=== PATIENT | male | born 1955 | race Caucasian/White ===

== ENCOUNTER 2024-07-25 06:05 | Inpatient (IN) | payer MEDICARE ==
[~2024-07-25] VITALS: Ht 160 cm; Wt 67.1 kg
[2024-07-25] MEDS ORDERED: LIDOCAINE 2%-EPI 1:100,000 30 ML VIAL ONE (06:54)
[2024-07-25] MEDS ORDERED: OXYMETAZOLINE HCL NASAL SPRAY 30 ML BOTTLE NS ONE (06:55)
[2024-07-25] MEDS ORDERED: VANCOMYCIN 1 GM VIAL ONE (06:55)
[2024-07-25] MEDS ORDERED: dexaMETHasone SOD PHOSPHATE 1 ML ONE (06:55)
[2024-07-25] MEDS ORDERED: LIDOCAINE 2% JEL UROJET 10 ML MM ONE (07:23)
[2024-07-25] MEDS ORDERED: MIDAZOLAM HCL 2 MG/2ML VIAL ONE (07:24)
[2024-07-25] MEDS ORDERED: FAMOTIDINE/PF INJ 20 MG/2 ML VIAL IV ONE (07:24)
[2024-07-25] MEDS ORDERED: FENTANYL PF 100MCG/2ML AMPUL ONE (07:24)
[2024-07-25] MEDS ORDERED: ROCURONIUM BROMIDE 50 MG/5 ML ONE (07:24)
[2024-07-25] MEDS ORDERED: LABETALOL 20 MG/4 ML VIAL ONE (08:26)
[2024-07-25] MEDS ORDERED: ONDANSETRON HCL/PF 4 MG/2 ML VIAL IVP PRN (11:30)
[2024-07-25] MEDS: ACETAMINOPHEN 325 MG TABLET PO PRN (11:30)
[2024-07-25] MEDS ORDERED: HYDROMORPHONE 1 MG/1 ML DISP.SYRIN IV PRN (11:30)
[2024-07-25] MEDS ORDERED: DOCU250C14 PO (11:47)
[2024-07-25] MEDS ORDERED: GEMTESA PO (11:47)
[2024-07-25] MEDS ORDERED: LIDO1ADH78 TD (11:47)
[2024-07-25] MEDS ORDERED: IBUP-1953 PO (11:47)
[2024-07-25] MEDS ORDERED: DICL25PO15 TP (11:47)
[2024-07-25] MEDS ORDERED: BACL10TA PO (11:47)
[2024-07-25] MEDS ORDERED: ERGO500093 PO (11:47)
[2024-07-25] MEDS ORDERED: SIMV-46 PO (11:47)
[2024-07-25] MEDS ORDERED: MAGN400T26 PO (11:47)
[2024-07-25] MEDS ORDERED: GABA300C PO (11:47)
[2024-07-25] MEDS ORDERED: TRIA60LO8 TP (11:47)
[2024-07-25] MEDS ORDERED: ASPI-1169 PO (11:47)
[2024-07-25 16:10] VITALS: BP 115/72; TEMP 97.9; O2SAT 94
[2024-07-25] MEDS: IV NS 0.9% 1,000 ML IV PRN (16:36)
[2024-07-25 20:00] VITALS: BP_SYST 134; BP_SYST 138; BP_DIAS 58; BP_DIAS 75; TEMP 97.5; O2SAT 94; O2SAT 97
[2024-07-25] MEDS: VANCOMYCIN 1 GM in IV D5W 250ml IV SCH (20:11)
[2024-07-26] MEDS ORDERED: BACLOFEN (10 MG) 10 MG TABLET PO SCH (17:00)
[2024-07-26] MEDS ORDERED: DOCUSATE SODIUM 250 MG CAPSULE PO SCH (17:00)
[2024-07-26] MEDS ORDERED: SIMVASTATIN 20 MG TABLET PO SCH (22:00)
[2024-07-27] MEDS ORDERED: ASPIRIN 81 MG TAB.CHEW PO SCH (09:00)
[2024-07-27] MEDS ORDERED: GABAPENTIN 300 MG CAPSULE PO SCH (09:00)
== END 2024-07-26 11:00 | disposition home or self-care (01) | DRG 497 ==
LOC: DS 06:05 → MED 10:39
PROVIDERS: ADMIT Internal Medicine; ATTEND Internal Medicine
PROC: 0N5V0ZZ Destruction of Left Mandible, Open Approach (ICD-10-PCS; principal; 2024-07-25)
PROC: 0NSR04Z Reposition Maxilla with Internal Fixation Device, Open Approach (ICD-10-PCS; 2024-07-25)
PROC: 0N5T0ZZ Destruction of Right Mandible, Open Approach (ICD-10-PCS; 2024-07-25)
PROC: 0N5R0ZZ Destruction of Maxilla, Open Approach (ICD-10-PCS; 2024-07-25)
PROC: 0CBH0ZZ Excision of Left Submaxillary Gland, Open Approach (ICD-10-PCS; 2024-07-25)
PROC: 0CBG0ZZ Excision of Right Submaxillary Gland, Open Approach (ICD-10-PCS; 2024-07-25)
PROC: 0NSV04Z Reposition Left Mandible with Internal Fixation Device, Open Approach (ICD-10-PCS; 2024-07-25)
PROC: 0NST04Z Reposition Right Mandible with Internal Fixation Device, Open Approach (ICD-10-PCS; 2024-07-25)
PROC: 0NUR07Z Supplement Maxilla with Autologous Tissue Substitute, Open Approach (ICD-10-PCS; 2024-07-25)
PROC: 0NUV07Z Supplement Left Mandible with Autologous Tissue Substitute, Open Approach (ICD-10-PCS; 2024-07-25)
PROC: 0NUT07Z Supplement Right Mandible with Autologous Tissue Substitute, Open Approach (ICD-10-PCS; 2024-07-25)
DX: S02.40DK Maxillary fracture, left side, subsequent encounter for fracture with nonunion (principal); S02.69XK Fracture of mandible of other specified site, subsequent encounter for fracture with nonunion; M27.2 Inflammatory conditions of jaws; D16.4 Benign neoplasm of bones of skull and face; E78.5 Hyperlipidemia, unspecified; G62.9 Polyneuropathy, unspecified; X58.XXXD Exposure to other specified factors, subsequent encounter; D49.0 Neoplasm of unspecified behavior of digestive system; M60.88 Other myositis, other site
CPT/HCPCS: A4223; A4338; C1713; G0378; J1100; J2250; J2704; J3010; J3370; J3490; J7030; J7060

== ENCOUNTER 2024-11-28 07:25 | Inpatient (IN) | payer MEDICARE, OTHER ==
[~2024-11-28] VITALS: Ht 160 cm; Wt 69.9 kg
[~2024-11-28 07:25] MED LIST: ASPI-1169 PO; BACL10TA PO; DICL25PO15 TP; DOCU250C14 PO; ERGO500093 PO; GABA300C PO; GEMTESA PO; IBUP-1953 PO; LIDO1ADH78 TD; MAGN400T26 PO; SIMV-46 PO; TRIA60LO8 TP
[2024-11-28] MEDS ORDERED: OXYMETAZOLINE HCL NASAL SPRAY 30 ML BOTTLE NS ONE (08:35)
[2024-11-28] MEDS ORDERED: LIDOCAINE 2%-EPI 1:100,000 30 ML VIAL ONE (08:35)
[2024-11-28] MEDS ORDERED: VANCOMYCIN 1 GM VIAL ONE (08:35)
[2024-11-28] MEDS ORDERED: dexaMETHasone SOD PHOSPHATE 2 ML ONE (08:35)
[2024-11-28] MEDS ORDERED: FENTANYL PF 100MCG/2ML AMPUL ONE (08:38)
[2024-11-28] MEDS ORDERED: MIDAZOLAM HCL 2 MG/2ML VIAL ONE (08:38)
[2024-11-28] MEDS ORDERED: LIDOCAINE 2% JEL UROJET 10 ML MM ONE (08:38)
[2024-11-28] MEDS ORDERED: ROCURONIUM BROMIDE 50 MG/5 ML ONE (08:39)
[2024-11-28] MEDS ORDERED: FAMOTIDINE/PF INJ 20 MG/2 ML VIAL IV ONE (08:39)
[2024-11-28] MEDS ORDERED: LABETALOL 20 MG/4 ML VIAL ONE (09:52)
[2024-11-28] MEDS ORDERED: KETOROLAC TROMETHAMINE INJ 30 MG/ML VIAL IM/IV PRN (10:30)
[2024-11-28] MEDS: BLOOD SUGAR DIAGNOSTIC 1 EACH STRIP VI ONE (12:25)
[2024-11-28] MEDS ORDERED: ACETAMINOPHEN 325 MG TABLET PO PRN ×2 (13:30→14:30)
[2024-11-28] MEDS ORDERED: HYDROMORPHONE 1 MG/1 ML DISP.SYRIN IV PRN (13:30)
[2024-11-28] MEDS ORDERED: ONDANSETRON HCL/PF 4 MG/2 ML VIAL IVP PRN ×2 (13:30→14:30)
[2024-11-28] MEDS: IV NS 0.9% 1,000 ML IV PRN (13:39)
[2024-11-28] MEDS ORDERED: HYDROCODONE/APAP 10/325MG TABLET PO PRN (14:30)
[2024-11-28] MEDS ORDERED: MAGNESIUM HYDROXIDE 30 ML UDC PO PRN (14:30)
[2024-11-28] MEDS ORDERED: MAG HYDROX/AL HYDROX/SIMETH 30 ML UDC PO PRN (14:30)
[2024-11-28] MEDS ORDERED: Z GUARD REMEDY 4 OZ OINT TP PRN (14:30)
[2024-11-28] MEDS ORDERED: LIDOCAINE 5% (PATCH) 1 EA PATCH TP PRN (15:00)
[2024-11-28 15:31] VITALS: BP 116/72; TEMP 97.7; O2SAT 99
[2024-11-28 16:00] VITALS: BP 126/75; TEMP 97.9; O2SAT 97
[2024-11-28] MEDS: MAGNESIUM OXIDE 400 MG TABLET PO SCH (17:13)
[2024-11-28] MEDS: DOCUSATE SODIUM 250 MG CAPSULE PO SCH (17:14)
[2024-11-28] MEDS: BACLOFEN (10 MG) 10 MG TABLET PO SCH (17:14)
[2024-11-28 20:00] VITALS: BP 115/64; TEMP 98.1; O2SAT 94
[2024-11-28] MEDS: SIMVASTATIN 20 MG TABLET PO SCH (21:11)
[2024-11-28] MEDS: VANCOMYCIN 1 GM in IV D5W 250ml IV SCH (21:11)
[2024-11-29 05:43] LABS: BASOPHILS % (AUTO) 0.1 % (0.0-2.0); HEMATOCRIT 39 % (39-51); HEMOGLOBIN 12.9 g/dL (13.5-17.5); LYMPHOCYTES # (AUTO) 0.9 K/uL (0.8-4.8); LYMPHOCYTES % (AUTO) 7.1 % (20.0-44.0); MEAN CORPUSCULAR HEMOGLOBIN 30 PG (26.0-33.0); MEAN CORPUSCULAR HGB CONC 33 g/dl (31.0-36.0); MEAN CORPUSCULAR VOLUME 89 fL (80-96); MONOCYTES # (AUTO) 0.9 K/uL (0.1-1.30); MONOCYTES % (AUTO) 7.5 % (2.0-12.0); NEUTROPHILS # (AUTO) 10.3 K/uL (1.8-8.9); NEUTROPHILS % (AUTO) 85.3 % (43.0-81.0); PLATELET COUNT (AUTO) 195 K/uL (150-450); RED BLOOD CELL COUNT(AUTO) 4.36 MIL/uL (4.5-6.0); RED CELL DISTRIBUTION WIDTH 13.8 % (11.5-15.0); WHITE BLOOD COUNT (AUTO) 12.1 K/uL (4.3-11.0)
[2024-11-29 05:56] LABS: CALCIUM, SERUM 9.1 mg/dL (8.5-10.1); CREATININE 0.9 mg/dL (0.6-1.3); MAGNESIUM 2.1 mg/dL (1.8-2.4); PHOSPHORUS 3.5 mg/dL (2.5-4.9); POTASSIUM 4.3 mmol/L (3.5-5.1)
[2024-11-29 08:00] VITALS: BP 109/58; TEMP 98.1; O2SAT 95
[2024-11-29] MEDS: ASPIRIN 81 MG TAB.CHEW PO SCH (08:09)
[2024-11-29] MEDS: GABAPENTIN 300 MG CAPSULE PO SCH (08:09)
[2024-11-29] MEDS ORDERED: Medication Not On Formulary EA ([Gemtesa] 75 MG) PO SCH (09:00)
[2024-11-30] MEDS ORDERED: ERGOCALCIFEROL (VITAMIN D 2) 50,000 UNIT CAPSULE PO SCH (09:00)
== END 2024-11-29 13:24 | disposition home or self-care (01) | DRG 497 ==
LOC: DS 07:25 → MED 11:53
PROVIDERS: ADMIT Nurse Practitioner Acute Care; ATTEND Nurse Practitioner Acute Care
PROC: 0CB1XZZ Excision of Lower Lip, External Approach (ICD-10-PCS; 2024-11-28)
PROC: 0N5R0ZZ Destruction of Maxilla, Open Approach (ICD-10-PCS; 2024-11-28)
PROC: 0WB30ZZ Excision of Oral Cavity and Throat, Open Approach (ICD-10-PCS; 2024-11-28)
PROC: 0N5V0ZZ Destruction of Left Mandible, Open Approach (ICD-10-PCS; 2024-11-28)
PROC: 0N5T0ZZ Destruction of Right Mandible, Open Approach (ICD-10-PCS; 2024-11-28)
PROC: 0NPW04Z Removal of Internal Fixation Device from Facial Bone, Open Approach (ICD-10-PCS; principal; 2024-11-28 10:05)
DX: T84.69XA Infection and inflammatory reaction due to internal fixation device of other site, initial encounter (principal); Y83.8 Other surgical procedures as the cause of abnormal reaction of the patient, or of later complication, without mention of misadventure at the time of the procedure; Y92.009 Unspecified place in unspecified non-institutional (private) residence as the place of occurrence of the external cause; M27.2 Inflammatory conditions of jaws; I25.10 Atherosclerotic heart disease of native coronary artery without angina pectoris; I10 Essential (primary) hypertension; K13.70 Unspecified lesions of oral mucosa; E78.5 Hyperlipidemia, unspecified; M19.90 Unspecified osteoarthritis, unspecified site; K12.30 Oral mucositis (ulcerative), unspecified; M60.9 Myositis, unspecified; D09.9 Carcinoma in situ, unspecified; M89.38 Hypertrophy of bone, other site
CPT/HCPCS: 36415; 80048-TC; 82962-TC; 83735-TC; 84100-TC; 85025-TC; 88305-TC; 88311-TC; A4217; A4223; A4338; G0378; J1100; J1308; J2250; J2704; J2765; J3010; J3370; J3490; J7030; J7060